=== PATIENT | female | born 1970 | race American Indian/Alaskan Native ===

== ENCOUNTER 2017-06-10 17:54 | Emergency (ER) | payer SELFPAY ==
--- NOTE | 2017-06-10 18:14 | Emergency Department Report ---
ED CPR HPI - General Chief Complaint: Cardiac Arrest/CPR Stated Complaint: CARDIAC ARREST Time Seen by Provider: 06/10/17 18:09 Source: family, EMS Mode of arrival: Stretcher Limitations: Other - History of Present Illness Initial Comments: 47-year-old female presents to the emergency department by EMS in cardiac arrest. The patient had been complaining about not feeling well earlier and called her daughter who came over and found her to be complaining of some shortness of breath. Her son was also around her at the time when she suddenly collapsed and went unresponsive. EMS got to the patient at 5:14 PM and she was pulseless at that time and found to be in V. tach. She received a defibrillation and ACLS protocol was underway and then the patient went into asystole where she remained through presentation [facility]. The patient was intubated by EMS with a 6.0 tube and received 5 doses of epinephrine during ACLS protocol prior to presentation. The patient presented in asystole and still unresponsive. She has a past medical history of hypertension and some type of allergy to seafood. The son is bedside upon arrival and says that the patient did not have any recent surgeries, immobility or recent long car or plane rides. The patient's daughter and fianc later showed up. - Related Data Allergies Allergy/AdvReac Type Severity Reaction Status Date / Time seafood Allergy Unknown Uncoded 06/10/17 18:00 ED Review of Systems ROS: Stated complaint: CARDIAC ARREST Other details as noted in HPI Comment: Unobtainable due to pts medical conditions ED Past Medical Hx - Past Medical History Hx Hypertension: Yes - Social History Smoking Status: Unknown if ever smoked ED Physical Exam - General Limitations: Other - Other Other exam information: GENERAL: Patient is ill-appearing and unresponsive. HENT: Normocephalic. Atraumatic. Patient has moist mucous membranes. EYES: Pupils are fixed and dilated. NECK: Supple. Trachea appears midline. CHEST/LUNGS: There are no spontaneous respirations. Breath sounds heard bilaterally with bag valve ventilation. HEART/CARDIOVASCULAR: There are no spontaneous heart sounds. ABDOMEN: Abdomen is soft. Obese habitus. SKIN: Skin is cool but dry. NEURO: Unresponsive. Does not withdraw to painful stimuli. Does not follow any commands. MUSCULOSKELETAL: There is no obvious deformity. There is no evidence of acute injury. No palpable femoral or radial pulses. ED Course Vital Signs 06/10/17 18:00 Pulse Rate 0 L ED Medical Decision Making - Medical Decision Making Patient arrived here around 5:50 PM asystolic receiving chest compressions and bag valve ventilation for ACLS. We immediately continued chest compressions. She received a total of 3 doses of epinephrine, one of sodium bicarbonate and 1 of calcium. An Accu-Chek was done and her blood sugar was about 130. After the fourth round of ACLS, I took the bedside ultrasound and looked at the patient's heart which did not have any movement, squeeze or even fibrillation. At this time the patient had been pulseless for about 45 minutes. Time of was called at 6:02 PM. Family is bedside and aware. - Differential Diagnosis NC, dysrhythmia, PE, hypoxic respiratory arrest Critical Care Time: Yes Critical care time in (mins) excluding proc time.: 15 Critical care attestation.: If time is entered above; I have spent that time in minutes in the direct care of this critically ill patient, excluding procedure time. Critical care time was spent on this patient during her initial evaluation and supervision of ACLS through time of being called. ED Disposition Clinical Impression: Cardiac arrest Respiratory failure Qualifiers: Chronicity: acute Respiratory failure complication: unspecified whether with hypoxia or hypercapnia Qualified Code(s): J96.00 - Acute respiratory failure, unspecified whether with hypoxia or hypercapnia Disposition: DC-20 Is pt being admited?: No Time of Disposition: 18:42
[2017-06-10] MEDS ORDERED: SODIUM BICARBONATE IV ONE (23:00)
[2017-06-10] MEDS ORDERED: CALCIUM CHLORIDE IV ONE (23:00)
[2017-06-10] MEDS ORDERED: ADRENALIN ONE (23:00)
== END 2017-06-10 22:10 ==
LOC: ED 17:54
DX: J96.90 Respiratory failure, unspecified, unspecified whether with hypoxia or hypercapnia (principal); I46.9 Cardiac arrest, cause unspecified; I10 Essential (primary) hypertension; Z91.013 Allergy to seafood
CPT/HCPCS: 82962; 92950; 99285; J0171